=== PATIENT | male | born 1980 | race Caucasian/White ===

== ENCOUNTER 2022-08-12 09:59 | Outpatient (CLI) | payer OTHER, SELFPAY | END 2022-08-12 10:00 | disposition home or self-care (01) | PROVIDERS: PCP Family Medicine; Visit Provider Family Medicine | DX: Z00.00 Encounter for general adult medical examination without abnormal findings (principal); E78.5 Hyperlipidemia, unspecified; N52.9 Male erectile dysfunction, unspecified | CPT/HCPCS: 80048; 80061; 84403; 84460; 85025 ==

== ENCOUNTER 2022-11-27 14:57 | Outpatient (CLI) | payer OTHER, SELFPAY ==
--- NOTE | 2022-11-27 15:30 | CRLHL7_ITS ---
For Patients: As a result of the Century Cures Act, medical imaging exams and procedure reports are released immediately into your electronic medical record. You may view this report before your referring provider. If you have questions, please contact your health care provider. INDICATION: Right sternoclavicular joint pain. COMPARISON: Right clavicle radiograph 11/16/2022. TECHNIQUE: Noncontrast MRI scan of the sternoclavicular joints. FINDINGS: This examination is suboptimal secondary to motion induced image degradation through the sternoclavicular joints. There is severe arthritis of the right sternoclavicular joint. There is joint space narrowing, osteophyte formation, bone marrow edema signal, joint effusion edema in the surrounding tissues. There is mild arthritis in the left sternoclavicular joint. No fracture or definite focal bone lesion is identified. No soft tissue mass is seen. IMPRESSION: 1. 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 This is likely secondary to osteoarthritis. However, a crystal deposition, inflammatory or infectious arthropathy cannot be excluded. 2. Mild osteoarthritis of the left sternoclavicular joint. Dictated by Brando Gonzalez MD @ 11/30/2022 7:10:02 PM ----- ADDENDUM ----- The patient returned on 12/11/2022 for additional noncontrast MRI sequences through the sternoclavicular joints. 2 millimeter thick axial T1, T2 and STIR and 2 millimeter thick coronal T1 weighted scans through the sternoclavicular joints were obtained utilizing motion artifact reduction techniques. The bilateral sternoclavicular joint arthritis, worse on the right is unchanged compared to the previous exam and is likely secondary to osteoarthritis. However, a crystal deposition, inflammatory or infectious arthropathy cannot be excluded. Clinical correlation is needed. No change to the findings or impression of the original report is made. Dictated by Brando Gonzalez MD @ Dec 17 2022 12:45PM Signed by:?Brando Gonzalez MD @11/30/2022 7:10:02 PM (Electronically Signed)
== END 2022-11-27 14:58 | disposition home or self-care (01) ==
LOC: MRI 14:57
PROVIDERS: PCP Family Medicine; Visit Provider Family Medicine
DX: M89.8X1 Other specified disorders of bone, shoulder (principal); M19.011 Primary osteoarthritis, right shoulder; M19.012 Primary osteoarthritis, left shoulder
CPT/HCPCS: 73221

== ENCOUNTER 2024-03-29 17:12 | Outpatient (CLI) | payer OTHER, SELFPAY ==
--- NOTE | 2024-03-29 17:30 | CRLHL7_ITS ---
For Patients: As a result of the 21st Century Cures Act, medical imaging exams and procedure reports are released immediately into your electronic medical record. You may view this report before your referring provider. If you have questions, please contact your health care provider. EXAM: MRI OF THE LEFT KNEE, WITHOUT CONTRAST CLINICAL INDICATION: Left knee pain. COMPARISON PLAIN FILMS: 01/13/2024. COMPARISON CROSS-SECTIONAL IMAGING STUDIES: None available at time of interpretation. TECHNICAL: Axial, sagittal and coronal T1, PD, PD FS and T2 FS images. Knee coil. FINDINGS: MEDIAL COMPARTMENT: Medial Meniscus: Irregular volume loss and fraying of the body and posterior horn of the medial meniscus consistent with a meniscal tear. The body of the medial meniscus is peripherally extruded. Articular Cartilage: Full-thickness chondromalacia centrally posteriorly (grade 4). - LATERAL COMPARTMENT: Lateral Meniscus: Tear of the posterior root attachment. No displaced meniscal fragments. Articular Cartilage: Focal areas of moderate to full-thickness fissuring and thinning in the central and posterior aspect of the femoral condyle (grade 3-4). - PATELLOFEMORAL COMPARTMENT: Articular Cartilage: 0.5 cm undermining full-thickness chondral fissure in the patellar apex (grade 4). Additional full-thickness chondral fissures in the lateral patellar facet (grade 4). Irregular moderate to high-grade chondromalacia throughout the trochlear groove (grade 3). - CRUCIATE LIGAMENTS: Anterior Cruciate Ligament: ACL reconstruction. The ACL graft is diminutive and poorly visualized consistent with a chronic tear. Posterior Cruciate Ligament: Diffuse increased signal consistent with mucoid degeneration. Buckling of the fibers consistent with ACL insufficiency. - MEDIAL COLLATERAL LIGAMENT AND POSTEROMEDIAL CORNER COMPLEX: Medial Collateral Ligament: Normal. Medial Head of the Gastrocnemius and Semimembranosus Tendons: Normal. - LATERAL COLLATERAL LIGAMENT COMPLEX AND POSTEROLATERAL CORNER COMPLEX: Fibular Collateral Ligament: Normal. Distal Biceps Femoris Tendon Complex: Normal. Iliotibial Band: Normal. Popliteus Tendon: Normal. Posterolateral Corner Capsule: Normal. - EXTENSOR MECHANISM: Distal Quadriceps Tendon: Normal. Patellar Tendon: Patellar tendon autograft. No tendon tear. Medial Patellar Retinaculum and Medial Patellofemoral Ligament: Normal. Lateral Patellar Retinaculum: Normal. Normal patellar alignment. No patella rodrigue. Normal trochlear depth. Normal lateral trochlear inclination. - JOINT SPACE: Effusion: Small knee joint effusion and popliteal cyst with mild synovitis. Joint Bodies: 1.5 cm posterior loose body. - OSSEOUS STRUCTURES: No fracture, marrow edema or marrow replacement process. - PERIARTICULAR SOFT TISSUES: Periarticular Cysts or Ganglia: None. Bursae: No prepatellar, superficial infrapatellar, deep infrapatellar, pes anserinus or semimembranosus/MCL bursitis. Musculature: No muscle atrophy or muscle edema. Subcutaneous and Soft Tissues: No subcutaneous or soft tissue mass, edema or fluid collection. Neurovascular Structures: Normal. IMPRESSION: 1. ACL reconstruction with a chronic tear of the ACL graft. 2. Mucoid degeneration of the PCL buckling secondary to ACL insufficiency. 3. Diffuse tear with volume loss in the body and posterior horn of the medial meniscus. 4. High-grade chondromalacia in the medial compartment. 5. Tear of the posterior horn lateral meniscus root attachment. 6. Moderate to high-grade chondromalacia in the lateral femoral condyle. 7. Diffuse trochlear chondromalacia and focal full-thickness fissuring in the patellar articular cartilage. 8. Knee joint effusion, popliteal cyst and mild synovitis. 9. Posterior intra-articular body. Dictated by Avinash He MD @ 03/31/2024 1:46:21 PM (Electronically Signed)
== END 2024-03-29 17:13 | disposition home or self-care (01) ==
LOC: MRI 17:12
PROVIDERS: PCP Family Medicine; Visit Provider Family Medicine
DX: M25.562 Pain in left knee (principal); S83.242A Other tear of medial meniscus, current injury, left knee, initial encounter; M94.262 Chondromalacia, left knee; M22.42 Chondromalacia patellae, left knee; M25.462 Effusion, left knee; M71.22 Synovial cyst of popliteal space [Baker], left knee; G89.29 Other chronic pain
CPT/HCPCS: 73721

== ENCOUNTER 2025-02-28 08:27 | Outpatient (CLI) | payer OTHER, SELFPAY ==
[2025-02-28 08:31] VITALS: BP 130/73; RESP 16; TEMP 36.6; O2SAT 98
--- NOTE | 2025-02-28 09:46 | PM.PROC ---
Procedure Note Time Seen by Provider: 09:00 Date Seen: 02/28/25 Provider Contact Time: 09:45 Date of procedure: 02/28/25 Will [facility] bill your pro fee for this procedure?: Yes Procedure: CRYONEUROLYSIS TREATMENT REPORT DATE OF PROCEDURE: 02/06 REFERRING PROVIDER: Jonathan Smith TREATMENT PROVIDER: Jignesh Green PREOPERATIVE DIAGNOSIS: left knee osteoarthritis POSTOPERATIVE DIAGNOSIS: left knee osteoarthritis? PROCEDURE: Cryoneurolysis of Multiple Sensory Nerves of the Knee ANESTHESIA: Local INDICATIONS: The patient is a very pleasant 45-year-old male with primary osteoarthritis involving the left knee who presents today for cryoneurolysis of multiple sensory nerves to the knee for severe knee pain.?Patient medical history was reviewed. The risks, benefits, treatment alternatives, and complications were discussed with the patient, including but not limited to bleeding, infection, nerve or tissue damage.?Informed consent was obtained. ? PRE-TREATMENT MOTOR ASSESSMENT/PAIN SCORE: Patient was able to demonstrate intact gross motor function with plantarflexion, dorsiflexion, adduction, abduction, hip flexion, and extension of the lower extremity.?Pre-treatment pain score of 8 out of 10 in the left knee. DESCRIPTION OF PROCEDURE: After obtaining informed consent, the patient was brought back to the treatment room and positioned supine on the table.?The left lower extremity was prepped with Chlorhexadine.?We began the procedure by performing our procedural pause.?Once this was completed and verified to be accurate, I began the procedure by identifying the nerves with the use of bedside ultrasound.?After the nerves were identified, the skin was marked and, using 1% lidocaine plain, the area of the nerves were anesthetized. ? After the anesthetic was administered, the Smart Tip 2190 cryoneurolysis needle was inserted into the treatment sites using ultrasound guidance.?Treatment was then initiated on the left lower extremity with the following nerves treated: superior, superior medial, superior lateral, and inferior medial genicular nerves. At the termination of the treatment, the cryoneurolysis needle was removed with the patient's skin cleansed and Band-Aids placed with an Edward bandage. Patient tolerated the procedure without any incident or concern.? Patient was then instructed to stand, mobilize the joint, and was examined to ensure gross motor skills were intact. COMPLICATIONS: None POST-TREATMENT PAIN SCORE: 0 out of 10. left knee DISPOSITION: Discharge instructions were given to the patient with education on the post-procedure expectations. Patient was instructed to call the Ortho clinic with any post-procedure concerns or questions.
[2025-02-28 09:50] VITALS: BP 153/81; PULSE 58; RESP 16; O2SAT 98
== END 2025-02-28 10:05 | disposition home or self-care (01) ==
LOC: OP CLINIC 08:27
PROVIDERS: PCP Family Medicine; Visit Provider Nurse Anesthetist, Certified Registered
DX: M17.12 Unilateral primary osteoarthritis, left knee (principal)
CPT/HCPCS: 64640; 76942; C9809

== ENCOUNTER 2025-03-05 16:22 | Outpatient (CLI) | payer OTHER, SELFPAY | END 2025-03-05 16:23 | disposition home or self-care (01) | PROVIDERS: PCP Family Medicine; Visit Provider Family Medicine | DX: Z01.818 Encounter for other preprocedural examination (principal) | CPT/HCPCS: 80048; 85025 ==

== ENCOUNTER 2025-03-15 09:53 | Day surgery (SDC) | payer OTHER, SELFPAY ==
[2025-03-15] VITALS (25 sets, daily range): BP systolic 92–130; BP diastolic 43–83; PULSE 53–72; RESP 12–18; TEMP 36.3–36.9; O2SAT 93–97; BMI 34.8
[2025-03-15] MEDS: LACTATED RINGERS 1000 ML 1,000 ML 100 ML IV ×3 (10:40→15:00)
[2025-03-15] MEDS: SODIUM CHLORIDE 0.9 % (FLUSH) 10 ML SYRINGE IVF (10:50)
[2025-03-15] MEDS: CELECOXIB 200 MG CAPSULE PO ×2 (10:50→20:06)
[2025-03-15] MEDS: OXYCODONE (CR) 10 MG TAB.ER.12H PO (10:50)
[2025-03-15] MEDS: ACETAMINOPHEN 500 MG TABLET 1000 MG PO (10:50)
[2025-03-15] MEDS: MIDAZOLAM HCL 1 MG/ML inj IVP (11:44)
--- NOTE | 2025-03-15 11:45 | SUR.PREOP ---
TIME?OUT:?1143 PT/RN/MDA?VERIFICATION?OF?SURGICAL?SITE,?PROCEDURE,?AND?CONSENT OBTAINED?PRIOR?TO?INVASIVE?PROCEDURE. all in agreement
[2025-03-15] MEDS: TRANEXAMIC ACID 100 MG/ML INJ 1000 MG IV (12:25)
[2025-03-15] MEDS: BUPIVACAINE 0.25% 30 ML 4 ML INJECTION (12:30)
[2025-03-15] MEDS: methylPREDNISolone acetate 80 MG/ML INJ 40 MG INJECTION (12:30)
[2025-03-15] MEDS: LACTATED RINGERS 1000 ML 1,000 ML 75 ML IV ×2 (14:30→17:33)
--- NOTE | 2025-03-15 14:33 | CRLHL7_ITS ---
For Patients: As a result of the Cures Act, medical imaging exams and procedure reports are released immediately into your electronic medical record. You may view this report before your referring provider. If you have questions, please contact your health care provider. Indication: Post op TKA Technique: Two views left knee Findings/Impression: Hardware from a left total knee arthroplasty is in satisfactory position. Bone alignment is normal. No sign of acute fracture. Postop changes are within normal limits. Dictated by Edd Garcia MD @ 03/16/2025 9:53:02 AM (Electronically Signed)
--- NOTE | 2025-03-15 14:35 | P.ORPRC_ITS ---
Procedure Note Date of procedure: 03/15/25 Procedure: PREOPERATIVE DIAGNOSIS: Bilateral knee osteoarthritis POSTOPERATIVE DIAGNOSIS: Bilateral knee osteoarthritis NAME OF OPERATION: Left total knee arthroplasty, right knee steroid injection SURGEON: Lito Smith MD CAR SEAT COVERER: HECTOR Carreno ANESTHESIA: Spinal ESTIMATED BLOOD LOSS: 0 mL COMPLICATIONS: None SPECIMENS: None DRAINS: None PREOPERATIVE ANTIBIOTICS: Ancef 3 g, antibiotic impregnated cement IMPLANTS: 1. J&J Attune # 8 posterior stabilized femur 2. Revision CRS # 7 fixed-bearing tibia, 14 mm x 50 mm cemented stem 3. # 8 posterior stabilized, 5 mm fixed-bearing polyethylene 4. 38 patella INDICATIONS: The patient is a 45-year-old with a longstanding history of severe, unrelenting left knee pain secondary to end-stage (grade IV) left knee osteoarthritis. He has had 6 previous surgeries on this knee including multiple failed ACL reconstructions. Despite appropriate nonoperative management, including activity modification, anti-inflammatories, [id number] pain medication, bracing, physical therapy, and injections they continue to have pain and disability. Operative intervention was offered. The risks, benefits and expected outcomes were discussed in detail. These included but were not limited to: Infection, bleeding, injury to blood vessel or nerve, venous thromboembolism. All questions were answered to their satisfaction. Use of an front end assistant was necessary throughout the case for patient positioning and safety, soft tissue retraction, and closure. A modifier 22 should be added to this case with multiple previous surgeries there is a significant amount of scarring which made the dissection difficult and take more time. Additionally, given the patient's BMI of 35 we used a stem on the tibial side to reduce the risk of aseptic loosening and antibiotic impregnated cement to reduce the risk of deep infection. This significantly added to the time and cost to complete the case. PROCEDURE: Spinal anesthesia was administered. The patient was placed supine on the operating table. The front end assistant made sure the patient was positioned appropriately. The lower extremity was prepped and draped in the usual sterile fashion. The limb was exsanguinated with the Curtis bandage. The pneumatic tourniquet was inflated to 250 mm Hg. A standard anterior incision was made with the knee in flexion. Subcutaneous dissection was sharply taken through fascial layer #1. Full-thickness medial and lateral flaps were elevated. The front end assistant retracted the soft tissues and protected them throughout the case. A standard subvastus approach was made. The patella was subluxed. The infrapatellar fat pad was debrided. The menisci and cruciate ligaments were sharply d?brided. Marginal osteophytes were d?brided with the rongeur. The drill was used to penetrate the femoral canal. The intramedullary femoral guide was placed for a 5-degree valgus cut, removing 12 mm off the distal femur. The saw was used to make the cut. Whitesides line and the trans epicondylar axis were marked. The femoral sizing guide was pinned onto the distal femur. Three degrees of external rotation nicely parallels the transepicondylar axis. Pins were placed for posterior referencing. The four-in-one cutting guide was pinned onto the distal femur. The anterior, posterior, and chamfer cuts were made. The front end assistant protected the collateral ligaments. The box cutting guide was pinned. The box cuts were made. The boxed trial was placed and was an excellent fit. Drill holes for the lugs were made. Attention was then turned to the proximal tibia. The intramedullary tibial guide was placed for a neutral varus/valgus cut with 3 degrees of posterior slope, removing 2 mm based off the medial tibial surface. The front end assistant protected the collateral ligaments and the neurovascular bundle. The saw was used to make the cut. Trial components were placed. The knee was nicely balanced in both flexion and extension. The trial components were removed. The tray was placed in appropriate rotation, parallel to our tibial cutting pins. It was pinned by the front end assistant and the drill x2 was used. The stemmed tibial trial was placed. The punch was used. The tray was removed. The punch was used again. Attention was then turned to the patella. [place] patellar thickness was 31 mm. The lobster claw resection guide was used with the 9.5 mm christopher. The saw was used to make the cut. Drill holes were made by the front end assistant. The trial was placed and was an excellent fit. Cancellous surfaces were irrigated with pulse lavage and thoroughly dried by the front end assistant. We cemented the tibial component, then the femoral component. We impacted the 5 mm polyethylene onto the tibial tray. The knee was brought into full extension. We then cemented the patellar component. Excessive cement was removed. The cement was allowed to harden. The knee was taken through a range of motion and was found to be nicely balanced in both flexion and extension. The patella tracks centrally. The front end assistant did a three minute dilute Betadine solution soak. The front end assistant irrigated the wound with 3 liters of normal saline via pulse lavage. The front end assistant reapproximated the extensor mechanism with #1 Vicryl in an interrupted [id number] fashion. The front end assistant then ran the extensor mechanism with a #1 PDO Stratafix. The front end assistant closed the subcutaneous tissues with a 3-0 Stratafix and the skin with a running 3-0 Stratafix in a subcuticular fashion. Glue was used to seal the skin. The front end assistant placed a dry dressing. Sponge and needle counts were correct x2. The patient tolerated the procedure well. There were no apparent complications. They were carefully transferred to the hospital bed and taken to the postanesthesia care unit in satisfactory condition. PLAN: The patient will be mobilized with physical therapy. Aspirin will be used for DVT prophylaxis. They will be discharged to home once medically appropriate.
--- NOTE | 2025-03-15 14:52 | P.NB_ITS ---
Nerve Block Nerve Block Time Seen by Provider: 11:45 Date Seen: 03/15/25 Type of block requested by surgeon for post-operative analgesia: adductor canal Side: left Time out performed: Yes Verification of patient name: Yes Verification of date of : Yes Site marking: site marked Name of person performing procedure: Peter Continuous monitoring Was continuous monitoring of O2 sat, B/P, driver license reviewing officer, recorded every 15 minutes?: Yes Procedure Checklist: sterile prep, needles and gloves Ultrasound guided. Images saved: Yes Medications given in 5ml increments after negative aspiration: Marcaine %: 0.25 mL: 15 Needle gauge: 20 Precedex (mcg): 25 Patient tolerated procedure well: Yes Block Charges Block Charge (with Pro Fee): Femoral Nerve Use of Ultrasound Machine for Block: Yes- US Guidance/pain block
--- NOTE | 2025-03-15 14:52 | P.ANES_ITS ---
Anesthesia Charges Start Date/Time Anesthesia Start Date: 03/15/25 Anesthesia Start Time: 12:03 Stop Date/Time Anesthesia Stop Date: 03/15/25 Anesthesia Stop Time: 15:20 Coding CPT Codes CPT Codes: ANESTH KNEE ARTHROPLASTY - 17317 ([id number]) P3 - PATIENT W/SEVERE SYS DISEASE, QK - OFFICE TECHNICIAN 2-4 CNCRNT ANES PROC, QX - MEDICAL INSURANCE VERIFIER SVC W/ MD MED DIRECTION
--- NOTE | 2025-03-15 14:52 | W.ANESCHARGE ---
Anesthesia Charges Start Date/Time Anesthesia Start Date: 03/15/25 Anesthesia Start Time: 12:03 Stop Date/Time Anesthesia Stop Date: 03/15/25 Anesthesia Stop Time: 15:20 Coding CPT Codes CPT Codes: ANESTH KNEE ARTHROPLASTY - 95540 ([id number]) P3 - PATIENT W/SEVERE SYS DISEASE, QK - MOLDED GRID AND PARTS INSPECTOR 2-4 CNCRNT ANES PROC, QX - MATCHER LEATHER PARTS SVC W/ MD MED DIRECTION
--- NOTE | 2025-03-15 14:53 | P.NB_ITS ---
Nerve Block Nerve Block Time Seen by Provider: 11:45 Date Seen: 03/15/25 Type of block requested by surgeon for post-operative analgesia: geniculars Side: left Time out performed: Yes Verification of patient name: Yes Verification of date of : Yes Site marking: site marked Name of person performing procedure: Peter Continuous monitoring Was continuous monitoring of O2 sat, B/P, equipment monitor phototypesetting, recorded every 15 minutes?: Yes Procedure Checklist: sterile prep, needles and gloves Ultrasound guided. Images saved: Yes Medications given in 5ml increments after negative aspiration: Marcaine %: 0.25 mL: 9 Needle gauge: 25 Patient tolerated procedure well: Yes Block Charges Block Charge (with Pro Fee): Genicular Nerve Block
--- NOTE | 2025-03-15 15:22 | P.ANES_ITS ---
Anesthesia Charges Start Date/Time Anesthesia Start Date: 03/15/25 Anesthesia Start Time: 12:03 Stop Date/Time Anesthesia Stop Date: 03/15/25 Anesthesia Stop Time: 15:20 Coding CPT Codes CPT Codes: ANESTH KNEE ARTHROPLASTY - 15653 ([id number]) P3 - PATIENT W/SEVERE SYS DISEASE, QK - LABORER HIDE HOUSE 2-4 CNCRNT ANES PROC, QX - SPECIAL TECHNICAL OPERATIONS OFFICER SVC W/ MD MED DIRECTION
--- NOTE | 2025-03-15 15:22 | W.ANESCHARGE ---
Anesthesia Charges Start Date/Time Anesthesia Start Date: 03/15/25 Anesthesia Start Time: 12:03 Stop Date/Time Anesthesia Stop Date: 03/15/25 Anesthesia Stop Time: 15:20 Coding CPT Codes CPT Codes: ANESTH KNEE ARTHROPLASTY - 04474 ([id number]) P3 - PATIENT W/SEVERE SYS DISEASE, QK - RECORDER OF DEEDS 2-4 CNCRNT ANES PROC, QX - FIRE SAFETY MANAGER SVC W/ MD MED DIRECTION
--- NOTE | 2025-03-15 16:01 | PM.IMCN1 ---
Date of Consult Consult date: 03/15/25 Requesting Physician: Orthopedics Primary Care Provider: Edd Martin MD Consult Narrative Narrative: HOSPITALIST CONSULT Procedure: Left total knee arthroplasty, right knee steroid injection SURGEON: Lito Smith MD ANESTHESIA: Spinal ESTIMATED BLOOD LOSS: 0 mL COMPLICATIONS: None SPECIMENS: None DRAINS: None The hospital medicine team was asked by the orthopedic surgery team to manage the patient's hx of alcohol abuse, opiate use disorder, chronic mental health medications. There have been no perioperative complications. I have updated and reviewed the active medical problems, past medical history, past surgical history, social history, allergies and medications in our electronic EMR. This includes a cross reference to care everywhere in [facility] and with [facility] databases. PHYSICAL EXAM: CODE STATUS: FULL CODE CONSTITUTIONAL: Conversive, good historian. A/O. Knows setting and context. VITAL SIGNS: see record. HEENT: Normocephalic, atraumatic. PERRL, EOMI, conjunctivae pink, no scleral icterus. Ears and nose externally normal. Pharynx normal. NECK: No JVD. No carotid bruit, no thyromegaly, no adenopathy. CHEST: Clear to auscultation bilaterally HEART: S1 and S2 normal. ABDOMEN: Flat, soft, nontender. Normal bowel sounds. Moderately obese. EXTREMITIES: No edema. MUSCULOSKELETAL: Left knee: Surgical dressing clean, dry, intact. NEURO: Cranial nerves intact. Mentation normal. Normal affect. SKIN: No rashes, petechiae, concerning changes PSYCHIATRIC: Mentation normal. INVESTIGATIONS: EMR Reviewed; Pre-OP Reviewed DISPOSITION: DVT: Agree with Ortho team decision (aspirin 81mg bid) GI: PO intake PFSH [facility] Medical History (Updated 03/15/25 @ 17:11 by Marilee Del Real MD) Acute lateral meniscus tear of right knee ?S83.281A - Other tear of lateral meniscus, current injury, right knee, initial encounter (ICD-10) Acute medial meniscus tear of right knee ?S83.241A - Other tear of medial meniscus, current injury, right knee, initial encounter (ICD-10) Low back strain ?S39.012A - Strain of muscle, fascia and tendon of lower back, initial encounter (ICD-10) 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 ?S83.512A - Sprain of anterior cruciate ligament of left knee, initial encounter (ICD-10) Rotator cuff tear, left ?M75.102 - Unspecified rotator cuff tear or rupture of left shoulder, not specified as traumatic (ICD-10) Biceps tendinosis of left shoulder ?M67.814 - Other specified disorders of tendon, left shoulder (ICD-10) Arthritis of left acromioclavicular joint ?M19.012 - Primary osteoarthritis, left shoulder (ICD-10) Lipoma of left shoulder ?D17.22 - Benign lipomatous neoplasm of skin and subcutaneous tissue of left arm (ICD-10) Osteoarthritis of left shoulder ?M19.012 - Primary osteoarthritis, left shoulder (ICD-10) Chronic pain of left knee ?M25.562 - Pain in left knee (ICD-10) ?G89.29 - Other chronic pain (ICD-10) Health care directive on file ?Z78.9 - Other specified health status (ICD-10) Erectile dysfunction ?N52.9 - Male erectile dysfunction, unspecified (ICD-10) Chronic pain of right ankle ?M25.571 - Pain in right ankle and joints of right foot (ICD-10) ?G89.29 - Other chronic pain (ICD-10) Opiate abuse, continuous ?F11.10 - Opioid abuse, uncomplicated (ICD-10) History of alcohol abuse ?F10.11 - Alcohol abuse, in remission (ICD-10) Major depression, recurrent ?F33.9 - Major depressive disorder, recurrent, unspecified (ICD-10) Hyperlipidemia ?E78.5 - Hyperlipidemia, unspecified (ICD-10) Surgical History (Updated 03/15/25 @ 16:11 by Marilee Del Real MD) Status post total knee replacement, left ?Z96.652 - Presence of left artificial knee joint (ICD-10) Hx of left knee surgery ?Z98.890 - Other specified postprocedural states (ICD-10) History of ankle surgery ?Z98.890 - Other specified postprocedural states (ICD-10) Family History Maternal Grandfather Heart disease Paternal Grandfather Stroke Brother Bipolar 1 disorder Mother Bipolar 1 disorder Social History Narrative: , 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, 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, 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, no EtOH What is your current living situation?: I presently have a place to live Problems where you live: no known problems In the past 12 months, utilities in danger of being shut off: no In past 12 months, lack of transportation kept you from medical appts, meetings, work, or getting things needed for daily living: no In the past 12 mos, have been you worried that your food would run out before you had money to buy more?: never true In the past 12 mos, the food you bought just didn't last and you didn't have money to buy more?: never true Smoking Status: Never smoker How often do you have a drink containing alcohol: never AUDIT-C Alcohol total score: 0 Non-prescribed substance use: denies use Caffeine: Yes How often does anyone, including family, friends and others, physically hurt you: never How often does anyone, including family, friends and others, insult or talk down to you: never How often does anyone, including family, friends and others, threaten you with harm: never How often does anyone, including family, friends and others, scream or curse at you: never Meds Home Medications and Allergies Home Medications ?Medication ?Instructions ?Recorded ?Confirmed ?Type bupropion HCl 150 mg 24 hr tablet, 150 mg PO QAM 08/12/22 03/15/25 History extended release bupropion HCl 300 mg 24 hr tablet, 300 mg PO DAILY 08/12/22 03/15/25 History extended release lamotrigine 100 mg tablet 100 mg PO DAILY 08/12/22 03/15/25 History lamotrigine 200 mg tablet 200 mg PO DAILY 08/12/22 03/15/25 History quetiapine 25 mg tablet 25 - 50 mg PO HS PRN insomnia 02/21/25 03/15/25 History tadalafil 20 mg tablet 20 mg PO .EACH TIME PRN 02/21/25 03/15/25 History acetaminophen 500 mg capsule 500 - 1,000 mg (1 - 2 x 500 mg) PO 03/15/25 Rx Q6H PRN pain #100 caps aspirin 81 mg chewable tablet 81 mg PO BID for DVT prophylaxis 03/15/25 Rx (Aspirin Childrens) 30 days #60 tabs oxycodone 5 mg tablet 5 mg PO Q4H PRN pain #42 tabs 03/15/25 Rx sennosides 8.6 mg tablet (Senna 17.2 mg (2 x 8.6 mg) PO BID PRN 03/15/25 Rx Lax) constipation #100 tabs Allergies Allergy/AdvReac Type Severity Reaction Status Date / Time No Known Drug Allergies Allergy Verified 03/05/25 14:00 Exam Const: Vital Signs, click to edit/add: Vital Signs - 24 hr 03/15/25 10:47 03/15/25 11:46 03/15/25 11:49 Temperature 97.8 F Pulse Rate 64 64 64 Respiratory Rate 16 16 16 Blood Pressure 130/83 126/76 129/72 Pulse Oximetry 96 95 95 Oxygen Delivery Me thod Room Air Nasal Cannula Nasal Cannula Oxygen Flow Rate 2 2 03/15/25 11:58 03/15/25 15:15 03/15/25 15:20 Temperature 97.9 F Pulse Rate 72 61 67 Respiratory Rate 16 16 14 Blood Pressure 115/69 94/54 L 95/59 L Pulse Oximetry 97 95 94 Oxygen Delivery Me thod Room Air Room Air Oxygen Flow Rate 03/15/25 15:25 03/15/25 15:30 03/15/25 15:35 Temperature Pulse Rate 60 58 L 59 L Respiratory Rate 13 15 14 Blood Pressure 94/60 110/49 L 111/45 L Pulse Oximetry 96 95 94 Oxygen Delivery Me thod Oxygen Flow Rate 03/15/25 15:40 03/15/25 15:45 03/15/25 15:50 Temperature 97.7 F Pulse Rate 58 L 57 L 56 L Respiratory Rate 12 12 14 Blood Pressure 98/53 L 100/56 L 103/57 L Pulse Oximetry 93 95 94 Oxygen Delivery Me thod Oxygen Flow Rate 03/15/25 15:55 Temperature Pulse Rate 53 L Respiratory Rate 13 Blood Pressure 103/55 L Pulse Oximetry 94 Oxygen Delivery Me thod Oxygen Flow Rate Assessment and Plan Assessment and plan (1) Status post total knee replacement, left: Problem comment: 03/15/25, Dr. Smith. Hospital medicine team is happy to follow the patient through to discharge. We are expecting a routine postoperative course. I have reconciled home medications and completed our part of the discharge. -we will manage his pain with the lowest effective dose of analgesia Status: Acute (2) Opiate abuse, continuous: Problem comment: Sober since 2020 Status: Acute (3) Osteoarthritis of right knee: Problem comment: -corticosteroid injection 03/15/25 Status: Acute (4) Major depression, recurrent: Problem comment: continue home meds Status: Acute (5) Hyperlipidemia: Status: Acute
[2025-03-15] MEDS: ACETAMINOPHEN INJ 1,000 MG/100 ML VIAL 400 MG IVPB ×2 (17:23→23:03)
[2025-03-15] MEDS: SENNOSIDES 1 TAB TABLET 2 TAB PO (20:07)
[2025-03-15] MEDS: ASPIRIN 81 MG TABLET EC PO (20:08)
[2025-03-15] MEDS: CEFAZOLIN 3 GM in 0.9 % SODIUM CHLORIDE Mini-bag 100 ML IVPB (21:18)
--- NOTE | 2025-03-15 23:34 | PC.NURSE ---
End of Shift: Patient pleasant and cooperative. Afebrile. Dressing to left knee C/D/I. CMS intact. Up to chair and bathroom with 1 assist, walker and gait belt. Tolerating regular diet with no nausea. Rating pain up to 7-8/10 and PRN Oxycodone and Dilaudid given x2. Pain decreased to 3-4/10.
[2025-03-16 02:00] VITALS: BP 121/79; PULSE 84; PULSE 95; RESP 18; TEMP 36.7; O2SAT 97
[2025-03-16] MEDS: ACETAMINOPHEN INJ 1,000 MG/100 ML VIAL 400 MG IVPB (04:58)
[2025-03-16] MEDS: CEFAZOLIN 3 GM in 0.9 % SODIUM CHLORIDE Mini-bag 100 ML IVPB (05:17)
[2025-03-16 06:00] VITALS: RESP 18; O2SAT 97
[2025-03-16 07:00] VITALS: PULSE 74; O2SAT 94
--- NOTE | 2025-03-16 07:45 | PC.NURSE ---
Pt's primary RN and this RN provided education to pt regarding importance of trying to take po pain medications rather than IV pain medications so that provider is able to see if po pain medications are effective for him before discharge. Education also provided that po pain medication typically provides longer pain control compared to IV pain medication. Pt continued to request IV pain medication rather than po pain medications stating, Just one more dose of the Dilaudid and stating pain to L knee 8/10. Outdoor Pursuits Instructor also provided ice. MD Martinez updated and ortho ANNI aware.
--- NOTE | 2025-03-16 07:59 | PC.NURSE ---
Patient AX4. VSS. Dressing to left knee C/D/I. CMS intact. Up to chair and bathroom with 1 assist, walker and gait belt. Rating pain up to 8-10/10 and pt insisting on getting Dilaudid for pain. Pt educated on the importance of trying the oral pain medication first and Dilaudid more for break through pain. Discussed on more than one occasion that the oral pain medication is going to last longer. Pt responded with yes, but I do have the Dilaudid. Gave Oxycodone and pt called within 10 mins stating he was having 10/10 break through pain. Did give Dilaudid at this time. Pt appeared to be resting comfortably.
[2025-03-16] MEDS: CELECOXIB 200 MG CAPSULE PO (08:12)
[2025-03-16] MEDS: SENNOSIDES 1 TAB TABLET 2 TAB PO (08:13)
[2025-03-16] MEDS: ASPIRIN 81 MG TABLET EC PO (08:15)
--- NOTE | 2025-03-16 08:38 | PM.ORPN ---
Subjective Subjective Time Seen by Provider: 08:15 Date Seen: 03/16/25 Principal diagnosis: Day 1 s/p left TKA Interval history: Erik is resting comfortably in bed this morning. , Miryam, is present during our visit. Erik reports he struggled to sleep last night due to severe left knee pain. For pain management, he has been receiving IV hydromorphone and IV oxycodone. Ice in place. Denies postop chest pain, SOB, fever, chills, nausea, vomiting and numbness/tingling distally. Denies postop bowel movement, but admits to flatulence. Ortho Exam Narrative Exam Narrative: Incision/Dressing: Dressing appears clean and dry. No drainage present. Mepilex intact. Left knee appears moderately swollen but supple with no obvious erythema, fluctuance or excessive warmth. Ecchymosis present over anteromedial knee. No erythematous streaking. Warmth around the wound is appropriate. Ice is being utilized as needed. CMS: Intact distally with 2+ Dorsalis pedis and Posterior Tibial pulses. Sensation intact distally. Calf: Bilateral calves are supple, with no swelling, pain, tenderness, erythema, discoloration or coolness to the touch. Constitutional: Patient is alert and oriented x3. Patient is in no acute distress and converses without labored breathing. Patient is able to make decisions and demonstrates good insight. Patient is pleasant and cooperative. Affect is full range and appropriate for the circumstances. Const Vital Signs, click to edit/add: Vital Signs - 24 hr 03/15/25 10:47 03/15/25 11:46 03/15/25 11:49 Temperature 97.8 F Pulse Rate 64 64 64 Pulse Rate [Left Dorsalis Pedis] Pulse Rate [Left Pulse Oximeter] Respiratory Rate 16 16 16 Blood Pressure 130/83 126/76 129/72 Blood Pressure [Left Arm] Pulse Oximetry 96 95 95 Oxygen Delivery Method Room Air Nasal Cannula Nasal Cannula Oxygen Flow Rate 2 2 03/15/25 11:58 03/15/25 15:15 03/15/25 15:20 Temperature 97.9 F Pulse Rate 72 61 67 Pulse Rate [Left Dorsalis Pedis] Pulse Rate [Left Pulse Oximeter] Respiratory Rate 16 16 14 Blood Pressure 115/69 94/54 L 95/59 L Blood Pressure [Left Arm] Pulse Oximetry 97 95 94 Oxygen Delivery Method Room Air Room Air Oxygen Flow Rate 03/15/25 15:25 03/15/25 15:30 03/15/25 15:35 Temperature Pulse Rate 60 58 L 59 L Pulse Rate [Left Dorsalis Pedis] Pulse Rate [Left Pulse Oximeter] Respiratory Rate 13 15 14 Blood Pressure 94/60 110/49 L 111/45 L Blood Pressure [Left Arm] Pulse Oximetry 96 95 94 Oxygen Delivery Method Oxygen Flow Rate 03/15/25 15:40 03/15/25 15:45 03/15/25 15:50 Temperature 97.7 F Pulse Rate 58 L 57 L 56 L Pulse Rate [Left Dorsalis Pedis] Pulse Rate [Left Pulse Oximeter] Respiratory Rate 12 12 14 Blood Pressure 98/53 L 100/56 L 103/57 L Blood Pressure [Left Arm] Pulse Oximetry 93 95 94 Oxygen Delivery Method Oxygen Flow Rate 03/15/25 15:55 03/15/25 16:00 03/15/25 16:10 Temperature 97.3 F L Pulse Rate 53 L 58 L Pulse Rate [Left Dorsalis Pedis] Pulse Rate [Left Pulse Oximeter] 58 L Respiratory Rate 13 12 16 Blood Pressure 103/55 L 105/56 L Blood Pressure [Left Arm] 92/52 L Pulse Oximetry 94 94 96 Oxygen Delivery Method Room Air Oxygen Flow Rate 03/15/25 16:30 03/15/25 16:45 03/15/25 17:00 Temperature Pulse Rate Pulse Rate [Left Dorsalis Pedis] Pulse Rate [Left Pulse Oximeter] 64 54 L 58 L Respiratory Rate 16 16 16 Blood Pressure Blood Pressure [Left Arm] 108/57 L 99/62 103/45 L Pulse Oximetry 96 97 96 Oxygen Delivery Method Room Air Room Air Room Air Oxygen Flow Rate 03/15/25 17:15 03/15/25 17:45 03/15/25 18:15 Temperature 97.7 F Pulse Rate Pulse Rate [Left Dorsalis Pedis] Pulse Rate [Left Pulse Oximeter] 60 62 59 L Respiratory Rate 16 16 18 Blood Pressure Blood Pressure [Left Arm] 105/54 L 117/63 107/43 L Pulse Oximetry 95 97 95 Oxygen Delivery Method Room Air Room Air Room Air Oxygen Flow Rate 03/15/25 19:00 03/15/25 20:00 03/15/25 21:00 Temperature 97.8 F 97.8 F 98.5 F Pulse Rate Pulse Rate [Left Dorsalis Pedis] Pulse Rate [Left Pulse Oximeter] 57 L 68 67 Respiratory Rate 16 16 16 Blood Pressure Blood Pressure [Left Arm] 115/59 L 125/74 118/49 L Pulse Oximetry 96 96 94 Oxygen Delivery Method Room Air Room Air Room Air Oxygen Flow Rate 03/15/25 22:00 03/15/25 23:00 03/16/25 02:00 Temperature 98.0 F 98.1 F Pulse Rate Pulse Rate [Left Dorsalis Pedis] 84 Pulse Rate [Left Pulse Oximeter] 68 95 Respiratory Rate 16 18 Blood Pressure Blood Pressure [Left Arm] 117/58 L 121/79 Pulse Oximetry 95 97 Oxygen Delivery Method Room Air Room Air Room Air Oxygen Flow Rate 03/16/25 06:00 Temperature Pulse Rate Pulse Rate [Left Dorsalis Pedis] Pulse Rate [Left Pulse Oximeter] Respiratory Rate 18 Blood Pressure Blood Pressure [Left Arm] Pulse Oximetry 97 Oxygen Delivery Method Room Air Oxygen Flow Rate Assessment and Plan Assessment and plan (1) Status post total knee replacement, left: Problem details: 03/15/25, Dr. Smith. Status: Acute Assessment and Plan: - Complete 23 hour perioperative antibiotics. - PT/OT consults for education and assistance. - Weight bear as tolerated with a walker for assistance. - Regarding pain management, patient will be discharged on oral pain medications (acetaminophen and oxycodone). Also recommend left lower extremity elevation above the heart, frequent icing and massaging edema proximally. Minimize narcotic pain medication use; wean off and discontinue as soon as possible. - DVT prophylaxis: aspirin 81 mg BID x 30 days. Also, frequent ambulation and ankle pumps when sedentary. - Social consult for discharge planning. - Anticipate patient will be discharged to home later today if the patient remains medically stable, pain is controlled and is safe with ambulation. - Return to clinic on 03/[address] Smith - Patient specifically requested to have his first postop visit with Dr. Smith. Mepilex dressing will be removed at this appointment. Remove sooner if dressing becomes saturated. - Phone Orthopedics with any questions or concerns. [phone]
[2025-03-16 10:00] VITALS: BP 135/63; PULSE 74; RESP 20; TEMP 36.8
--- NOTE | 2025-03-16 11:49 | PC.NURSE ---
Patient was cooperative through the shift. VSS. Moving SBA with walker. Afebrile. A&Ox4. Accompanied by family member.
== END 2025-03-16 11:05 | disposition home or self-care (01) ==
LOC: OR 09:58 → MEDSURG 09:59
PROVIDERS: PCP Family Medicine; Visit Provider Orthopaedic Surgery
PROC: (CPT 27447; principal; 2025-03-15 11:15)
PROC: (CPT 27447; 2025-03-15 11:15)
DX: M17.0 Bilateral primary osteoarthritis of knee (principal); G89.18 Other acute postprocedural pain; E66.9 Obesity, unspecified; Z68.35 Body mass index [BMI] 35.0-35.9, adult; G89.29 Other chronic pain; F11.10 Opioid abuse, uncomplicated; F10.11 Alcohol abuse, in remission; F33.9 Major depressive disorder, recurrent, unspecified; E78.5 Hyperlipidemia, unspecified
CPT/HCPCS: 27447; 20610; 01402; 64447; 64454; 73560; 76942; 97110; 97116; 97161; 97165; 97530; A9270; C1776; J0131; J0665; J0690; J1010; J1171; J2250; J2371; J2405; J2704; J3010; J7120

== ENCOUNTER 2025-05-01 13:45 | Outpatient (RCR) | payer OTHER, SELFPAY | END 2025-05-10 16:13 | disposition home or self-care (01) | PROVIDERS: PCP Family Medicine; Visit Provider Orthopaedic Surgery | DX: Z47.1 Aftercare following joint replacement surgery (principal); Z96.652 Presence of left artificial knee joint; Z51.89 Encounter for other specified aftercare | CPT/HCPCS: 97110; 97140; 97162 ==